=== PATIENT | male | born 1950 | race Caucasian/White ===

== ENCOUNTER 2020-04-24 16:11 | Emergency (ER) | payer MEDICARE, OTHER ==
[~2020-04-24] VITALS: Ht 170.2 cm; Wt 74.8 kg
--- NOTE | 2020-04-24 17:41 | NUR ---
medical laboratory technologist at bedside for exam
--- NOTE | 2020-04-24 18:30 | NUR ---
patient came in to the er c/o sorethroat x 3 days. On room air, breathing evenly and unlabored. connected to the monitor and pulse ox. kept comfortable, will continue to monitor accordingly.
[2020-04-24 18:45] VITALS: BP 140/55
== END 2020-04-24 19:04 | disposition home or self-care (01) ==
LOC: ER 16:20
DX: E04.1 Nontoxic single thyroid nodule (principal); M54.2 Cervicalgia; R07.89 Other chest pain; I10 Essential (primary) hypertension
CPT/HCPCS: 70360-TC; 71045-TC; 76536-TC; 86403-TC; 87070-TC